=== PATIENT | female | born 1990 | race African-American/Black ===

== ENCOUNTER 2017-12-30 14:08 | Emergency (ER) | payer OTHER ==
[2017-12-30 14:17] VITALS: BP 100/71
--- NOTE | 2017-12-30 14:54 | ED Physician Documentation ---
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 It was getting better but got worse again today without specific new injury. She is able to walk and bear weight. No Other injuries.) Review of Systems Constitutional: denies: Fever, Chills : denies: Now EGA Skin: denies: Rash, Lesions PD PAST MEDICAL HISTORY - Past Medical History Past Medical History: No Cardiovascular: None Respiratory: None Neuro: None Endocrine/Autoimmune: None GI: None TANK TESTER: None : None HEENT: None Psych: None Musculoskeletal: None Derm: None - Past Surgical History Past Surgical History: No - Present Medications Home Medications: Ambulatory Orders Medication Instructions Recorded Confirmed Ibuprofen [Motrin] 800 mg PO Q8H PRN #30 tablet 12/30/17 - Allergies Allergies/Adverse Reactions: Allergies Allergy/AdvReac Type Severity Reaction Status Date / Time No Known Drug Allergies Allergy Verified 12/30/17 14:17 - Social History Does the pt smoke?: Yes Smoking Status: Current some day smoker Does the pt drink ETOH?: Yes Does the pt have substance abuse?: No - Immunizations Immunizations are current?: Yes - POLST Patient has POLST: No PD ED PE NORMAL - Vitals Vital signs reviewed: Yes - General General: Alert and oriented X 3, No acute distress - Extremities Extremities: Other (Left ankle: She has mild swelling and tenderness of the lateral malleolus without medial malleolar tenderness. Achilles function is normal. There is also mild tenderness of the anterior joint line. No limited range of motion or deformity.) - Neuro Neuro: Alert and oriented X 3, Normal speech Results - Vitals Vitals: Vital Signs - 24 hr 12/30/17 14:14 Temperature 36.6 C Heart Rate 77 Respiratory 16 Rate Blood Pressure 100/71 O2 Saturation 99 Oxygen O2 Source Room air - Rads (name of study) 3v L ankle Radiology: EMP read contemporaneously (normal) PD MEDICAL DECISION MAKING - Sepsis Event Vital Signs: Vital Signs - 24 hr 12/30/17 14:14 Temperature 36.6 C Heart Rate 77 Respiratory 16 Rate Blood Pressure 100/71 O2 Saturation 99 Oxygen O2 Source Room air Departure - Departure Disposition: Home, Self Care Clinical Impression: Left ankle sprain Qualifiers: Encounter type: initial encounter Involved ligament of ankle: anterior talofibular ligament Qualified Code(s): S93.492A - Sprain of other ligament of left ankle, initial encounter Condition: Good Record reviewed to determine appropriate education?: Yes Instructions: ED Sprain Ankle W X Ray Prescriptions: Ibuprofen [Motrin] 800 mg PO Q8H PRN #30 tablet PRN Reason: PAIN &/OR FEVER Forms: Activity restrictions Discharge Date/Time: 12/30/17 15:21
--- NOTE | 2017-12-30 15:40 | XRAY Report ---
Reason: ankle inj Procedure Date: 12/30/2017 Accession Number: [id number] / [id number] Procedure: XR - Ankle 3 View LT CPT Code: FULL RESULT: EXAM: LEFT ANKLE RADIOGRAPHY EXAM DATE: 12/30/2017 03:11 PM. CLINICAL HISTORY: Twisting injury. COMPARISON: None available.. TECHNIQUE: 3 views. FINDINGS: Bones: Normal. No fractures or bone lesions. Joints: Normal. No effusion. No subluxations. The ankle mortise is normally aligned. Soft Tissues: Normal. No soft tissue swelling. IMPRESSION: Negative left ankle. RADIA
== END 2017-12-30 15:21 | disposition home or self-care (01) ==
LOC: ED 14:08
DX: S93.492A Sprain of other ligament of left ankle, initial encounter (principal); F17.200 Nicotine dependence, unspecified, uncomplicated; X50.1XXA Overexertion from prolonged static or awkward postures, initial encounter; Y92.89 Other specified places as the place of occurrence of the external cause
CPT/HCPCS: 99283

== ENCOUNTER 2018-11-27 | Emergency (ER) | payer OTHER | END 2018-11-27 16:41 | disposition home or self-care (01) | DX: M54.10 Radiculopathy, site unspecified (principal); M54.40 Lumbago with sciatica, unspecified side; F17.200 Nicotine dependence, unspecified, uncomplicated | CPT/HCPCS: 99283; 99284; A9270 ==